=== PATIENT | female | born 1955 | race Caucasian/White ===

== ENCOUNTER → 2017-09-13 13:13 | Outpatient (CLI) | payer OTHER, SELFPAY ==
--- NOTE | 2017-09-13 13:17 | RAD_ITS ---
STUDY: X-RAY - RIGHT ANKLE REASON FOR EXAM: Female, 62 years old. Arthritis TECHNIQUE: 4 view(s) of the ankle. COMPARISON: None. FINDINGS: Normal visualized distal tibia and fibula. Normal medial and lateral malleoli. Normal tibiotalar articulation and ankle mortise. There is a large plantar aspect calcaneal spur. The visualized subtalar, talonavicular, calcaneocuboid and tarsal articulations are normal. The soft tissue structures are unremarkable. RAD/Ankle min 3 Views IMPRESSION: Large plantar aspect calcaneal spur. The remaining osseous structures and articular surfaces of the right ankle appear within normal limits. Electronically Signed: Joseph Hayes MD at 21:52 EST , Service support ,
== END ==
PROVIDERS: Family Provider Family Medicine; PCP Family Medicine
DX: M06.89 Other specified rheumatoid arthritis, multiple sites (principal); M65.871 Other synovitis and tenosynovitis, right ankle and foot; M77.31 Calcaneal spur, right foot
CPT/HCPCS: 73610

== ENCOUNTER → 2017-10-21 11:15 | Outpatient (CLI) | payer OTHER, SELFPAY ==
[2017-10-21 11:45] LABS: Absolute Lymphocyte Count 2.06 X10^3/ul (0.83-4.51); Absolute Neutrophil Count 4.8 X10^3/uL (2.0-7.7); Basophil# 0.02 X10^3/uL; Basophil% 0.3 % (0-1); Eosinophil# 0.08 X10^3/uL; Eosinophils% 1.1 % (0-5); Hematocrit 39.5 % (37-47); Hemoglobin 12.3 g/dl (12.0-15.0); Lymphocyte # 2.06 X10^3/ul (4.0); Lymphocyte % 27.1 % (19-41); Mean Corp Hgb Conc 31.1 g/gl (32-36); Mean Corpuscular Hgb 27.6 pg (27.0-32.0); Mean Corpuscular Volume 88.8 fL (81-99); Mean Platelet Vol. 9.3 fl (6.2-12.0); Monocyte# 0.62 X10^3/uL; Monocyte% 8.1 % (0-10); Neutrophil # 4.81 X10^3/uL (2.7-7.7); Neutrophil % 63.1 % (47-70); Platelet Count 361 K/mm3 (150-450); RBC Distribution Width CV 15.9 % (11.6-14.6); RBC Distribution Width SD 51.3 fl (35.1-43.9); Red Blood Count 4.45 M/mm3 (4.2-5.4); White Blood Count 7.6 K/mm3 (4.4-11.0)
[2017-10-21 11:46] LABS: POSITIVE COUNT NO; POSITIVE DIFFERENTIAL NO; POSITIVE MORPHOLOGY NO
[2017-10-21 12:05] LABS: Erythrocyte Sedimentation Rate 25 mm/hr (0-30)
[2017-10-21 12:18] LABS: Albumin, Serum 3.3 g/dL (3.2-5.0); BUN 15 mg/dL (7-18); BUN/Creat Ratio 17.4 RATIO (10-20); Creatinine, Serum 0.86 mg/dL (0.55-1.02); EST Glomerular Filtration Rate 70 mL/min (>60); Est Glom Filt Rate - Afr Amer 85 mL/min (>60); Glucose 97 mg/dL (74-106); Protein, Total 6.9 g/dL (6.4-8.2); Uric Acid 3.9 mg/dL (2.6-6.0)
[2017-10-21 12:19] LABS: ALB/GLOB Ratio 0.9 RATIO (0.9-2.4); AST(SGOT) 17 U/L (15-37); Alanine Aminotransfer ALT/SGPT 30 U/L (13-56); Alkaline Phosphatase 107 U/L (45-117); Anion Gap 4 (5-15); Calcium,Total 8.4 mg/dL (8.5-10.1); Chloride 106 mmol/L (98-107); Globulin 3.6 g/dL (2.2-4.2); Potassium 3.7 mmol/L (3.5-5.1); Sodium Level 141 mmol/L (136-145); Thyroid Stim Hormone (TSH) 1.25 uIU/mL (0.358-3.74)
== END ==
PROVIDERS: Family Provider Family Medicine; PCP Family Medicine; Visit Provider Family Medicine
DX: M10.9 Gout, unspecified (principal); F41.9 Anxiety disorder, unspecified; M06.9 Rheumatoid arthritis, unspecified
CPT/HCPCS: 36415; 80053; 84443; 84550; 85025; 85652

== ENCOUNTER → 2018-01-05 12:13 | Outpatient (CLI) | payer OTHER, SELFPAY ==
[2018-01-05 12:48] LABS: Absolute Lymphocyte Count 1.64 X10^3/ul (0.83-4.51); Basophil# 0.03 X10^3/uL; Basophil% 0.4 % (0-1); Eosinophil# 0.03 X10^3/uL; Eosinophils% 0.4 % (0-5); Hematocrit 38.9 % (37-47); Hemoglobin 12.3 g/dl (12.0-15.0); Lymphocyte # 1.64 X10^3/ul (4.0); Lymphocyte % 19.5 % (19-41); Mean Corp Hgb Conc 31.6 g/gl (32-36); Mean Corpuscular Volume 88.4 fL (81-99); Mean Platelet Vol. 9.4 fl (6.2-12.0); Monocyte% 8.3 % (0-10); Neutrophil # 6.01 X10^3/uL (2.7-7.7); Neutrophil % 71.3 % (47-70); Platelet Count 291 K/mm3 (150-450); RBC Distribution Width CV 14.5 % (11.6-14.6); RBC Distribution Width SD 46.7 fl (35.1-43.9); White Blood Count 8.4 K/mm3 (4.4-11.0)
[2018-01-05 12:51] LABS: POSITIVE COUNT NO; POSITIVE DIFFERENTIAL NO; POSITIVE MORPHOLOGY NO
[2018-01-05 13:00] LABS: Erythrocyte Sedimentation Rate 31 mm/hr (0-30)
== END ==
PROVIDERS: Family Provider Family Medicine; PCP Family Medicine; Visit Provider Specialist
DX: Z96.612 Presence of left artificial shoulder joint (principal)
CPT/HCPCS: 36415; 85025; 85652; 86140

== ENCOUNTER → 2018-01-12 08:38 | Outpatient (CLI) | payer OTHER, SELFPAY ==
[2018-01-12 10:31] LABS: Appearance /Synovial Fluid Cloudy (CLEAR); Color / Synovial Fluid Pink (Pale Yellow); Source / Synovial Fluid LEFT SHOULDER; Viscosity / Synovial Fluid Viscous (HIGH)
[2018-01-12 11:40] LABS: Lymph 88 %; Monocyte /Synovial Fluid 8 %; Neutrophil 4 % (0-25)
[2018-01-12 14:28] LABS: Pathologist Comment Reviewed
== END ==
PROVIDERS: Family Provider Family Medicine; PCP Family Medicine; Visit Provider Specialist
DX: Z96.612 Presence of left artificial shoulder joint (principal)
CPT/HCPCS: 87015; 87070; 87075; 87116; 87205; 87206; 89051

== ENCOUNTER → 2018-02-13 09:37 | Outpatient (CLI) | payer OTHER, SELFPAY ==
--- NOTE | 2018-02-13 09:44 | NM_ITS ---
CLINICAL: 63-year-old female with reported history of painful left shoulder arthroplasty operated approximately 2 years previous. LIMITED 99m Tc MDP THREE PHASE BONE SCINTIGRAPHY COMPARISON: MRI of the left shoulder report 01/17/2018 FINDINGS: Following the intravenous administration of 26.7 mCi of 99m Tc MDP, three-phase bone acquisitions of the chest, cervical-thoracic spine reveal: 1. The flow and immediate static blood pool acquisitions demonstrate normal arterial and venous phase distribution of the radiopharmaceutical. 2. Delayed images depict increased tracer concentration identified in the glenoid and apparent proximal humeral components of the symptomatic left shoulder prosthesis. 3. An increase in uptake is defined in the mid cervical spine posteriorly on the right, lower cervical spine posteriorly on the left and in the midline, the acromioclavicular compartment of the right shoulder, region of the 10th thoracic vertebra posteriorly on the right. 4. The remaining limited skeletal structures are scintigraphically unremarkable. NM/Bone Scan Three Phase IMPRESSION: 1. The increased radiopharmaceutical concentration identified in the humeral and glenoid components of the symptomatic left shoulder arthroplasty is consistent with a high likelihood of loosening in the setting of operative intervention > 2 years prior to the current presentation. If an infectious etiology is a diagnostic consideration, correlation with labeled leukocyte imaging is recommended. 2. Degenerative arthritis is defined in the cervical and thoracic spine, the right shoulder articulation. Electronically Signed: Raymon Quiroga DO at 23:10 EDT Tel , Service support ,
== END ==
PROVIDERS: Family Provider Family Medicine; PCP Family Medicine; Visit Provider Orthopaedic Surgery
DX: Z96.612 Presence of left artificial shoulder joint (principal)
CPT/HCPCS: 78315

== ENCOUNTER → 2018-08-14 14:36 | Outpatient (CLI) | payer MEDICARE, SELFPAY ==
--- NOTE | 2018-08-14 14:48 | EKG12_ITS ---
Test Reason : PRE OP Blood Pressure : / mmHG Vent. Rate : 081 BPM Atrial Rate : 081 BPM P-R Int : 240 ms QRS Dur : 088 ms QT Int : 400 ms P-R-T Axes : 046 -05 066 degrees QTc Int : 464 ms Sinus rhythm with 1st degree A-V block Minimal voltage criteria for LVH, may be normal variant Septal MT, age undetermined, cannot be excluded Nonspecific ST and T wave abnormality Borderline ECG Confirmed by BRANDYN RAZA, SAKINA ([id number]), telegraph editor MARY SALAS ([id number]) on 08/16/2018 2:57:48 PM Referred By: Anshu Goosdon Confirmed By:SAKINA AHUMADA MD
--- NOTE | 2018-08-14 15:08 | RAD_ITS ---
STUDY: X-RAY CHEST REASON FOR EXAM: Female, 63 years old. Pre-op TECHNIQUE: PA and lateral views of the chest. COMPARISON: None. FINDINGS: The lungs are clear and expanded. There is no demonstrated pleural abnormality. There is borderline cardiomegaly. Normal mediastinum and jose. Normal visualized pulmonary arteries. Normal visualized aortic arch and descending thoracic aorta. There are diffuse degenerative changes of the visualized thoracic spine. There is a left shoulder arthroplasty. There is degenerative change in the right shoulder joint. There is no demonstrated abnormality of the visualized soft tissue structures of the upper abdomen. RAD/Chest PA and Lateral IMPRESSION: Borderline cardiac enlargement no evidence of acute focal infiltrate. Electronically Signed: Deanna Wilburn MD at 19:48 EST Tel , Service support ,
[2018-08-14 15:44] LABS: Hematocrit 38.7 % (37-47); Hemoglobin 12.7 g/dl (12.0-15.0); Mean Corp Hgb Conc 32.8 g/gl (32-36); Mean Corpuscular Hgb 29.1 pg (27.0-32.0); Mean Corpuscular Volume 88.8 fL (81-99); Mean Platelet Vol. 9.9 fl (6.2-12.0); Platelet Count 330 K/mm3 (150-450); RBC Distribution Width CV 13.8 % (11.6-14.6); Red Blood Count 4.36 M/mm3 (4.2-5.4); White Blood Count 6.6 K/mm3 (4.4-11.0)
[2018-08-14 16:03] LABS: Anion Gap 9 (5-15); BUN 13 mg/dL (7-18); BUN/Creat Ratio 14.9 RATIO (10-20); Calcium,Total 8.4 mg/dL (8.5-10.1); Chloride 103 mmol/L (98-107); Creatinine, Serum 0.88 mg/dL (0.55-1.02); EST Glomerular Filtration Rate 69 mL/min (>60); Est Glom Filt Rate - Afr Amer 84 mL/min (>60); Glucose 130 mg/dL (74-106); Potassium 3.7 mmol/L (3.5-5.1); Sodium Level 141 mmol/L (136-145)
[2018-08-14 16:09] LABS: Scan Indicated on CBC? Y/N NO
[2018-08-14 16:17] LABS: Erythrocyte Sedimentation Rate 24 mm/hr (0-30)
== END ==
PROVIDERS: Family Provider Family Medicine; PCP Family Medicine; Referring Provider Physician Assistant Surgical; Visit Provider Physician Assistant Surgical
DX: Z01.818 Encounter for other preprocedural examination (principal); Z01.810 Encounter for preprocedural cardiovascular examination; Z01.811 Encounter for preprocedural respiratory examination; M15.0 Primary generalized (osteo)arthritis
CPT/HCPCS: 36415; 71046; 80048; 85027; 85652; 93005

== ENCOUNTER → 2018-08-23 12:06 | Outpatient (CLI) | payer MEDICARE, SELFPAY ==
[2018-08-22 13:18] VITALS: BMI 44.1
[2018-08-23 13:55] LABS: AST(SGOT) 19 U/L (15-37); Alanine Aminotransfer ALT/SGPT 29 U/L (13-56); Albumin, Serum 3.7 g/dL (3.2-5.0); Alkaline Phosphatase 128 U/L (45-117); Bilirubin, Direct 0.19 mg/dL (0.00-0.30); Cholesterol 158 mg/dL (200); Globulin 3.6 g/dL (2.2-4.2); High Density Lipoprotein 37 mg/dL; Protein, Total 7.3 g/dL (6.4-8.2); Triglycerides 242 mg/dL; Very Low Density Lipoprotein 48 mg/dL (5-40)
== END ==
PROVIDERS: Family Provider Family Medicine; PCP Family Medicine; Referring Provider Internal Medicine Cardiovascular Disease; Visit Provider Internal Medicine Cardiovascular Disease
DX: E78.5 Hyperlipidemia, unspecified (principal); E66.9 Obesity, unspecified
CPT/HCPCS: 36415; 80061; 80076

== ENCOUNTER → 2018-08-24 15:25 | Outpatient (CLI) | payer MEDICARE, SELFPAY ==
[2018-08-22 13:18] VITALS: BMI 44.1
--- NOTE | 2018-08-24 15:27 | ECHOD_ITS ---
Reason For Study: DYSPNEA Procedure This was a 2D Doppler, Color Flow transthoracic echocardiogram. Exam performed in department. Left Ventricle Normal size and thickness. The estimated ejection fraction is 65 %. Stage 1 diastolic dysfunction. No regional wall motion abnormalities noted. Right Ventricle Normal size and thickness. Normal systolic function. Atria The left atrium is mildly enlarged. Normal right atrium. Normal atrial septum. Mitral Valve The mitral valve is structurally normal. No prolapse or stenosis seen. Trivial mitral valve insufficiency. Tricuspid Valve Normal tricuspid valve. Trivial tricuspid valve insufficiency. Right ventricular systolic pressure estimated to be 31 mmHg. Aortic Valve Normal aortic valve. Trisinus/trileaflet aortic valve. Pulmonic Valve Normal pulmonic valve. Great Vessels Normal aortic root. Normal arch. Normal inferior vena cava. Inferior vena cava collapse with sniff. Pericardium/Pleural No pericardial effusion. MMode/2D Measurements & Calculations LVIDd: 5.8 cm IVSd: 0.90 cm Ao root diam: 3.5 cm LVIDs: 3.6 cm LVPWd: 1.2 cm RVDd: 3.2 cm FS: 38.5 % LAV(MOD-bp): 61.9 ml EDV(MOD-sp4): 60.5 ml EDV(MOD-sp2): 60.6 ml LAV(MOD-bp) Indexed: 31.0 ml/m2 ESV(MOD-sp4): 24.8 ml EF(MOD-sp2): 68.2 % LAV(MOD-sp2): 53.6 ml EF(MOD-sp4): 59.0 % LAV(MOD-sp4): 64.6 ml SV(MOD-sp4): 35.6 ml SV(MOD-sp2): 41.3 ml LA A4 area: 21.3 cm2 LA dimension(2D): 4.4 cm RA A4 area: 10.9 cm2 Time Measurements MV dec time: 0.22 sec Doppler Measurements & Calculations MV E max rasheed: 87.6 cm/sec Lat Peak E' Rasheed: 5.0 cm/sec Med Peak E' Rasheed: 5.3 cm/sec MV A max rasheed: 94.9 cm/sec E/E' lat: 17.4 E/E' med: 16.6 MV E/A: 0.92 Ao V2 max: 168.5 cm/sec LV V1 max: 104.9 cm/sec TR max rasheed: 236.2 cm/sec Ao max P.4 mmHg LV V1 max P.4 mmHg TR max P.4 mmHg Interpretation Summary The estimated ejection fraction is 65 %. Stage 1 diastolic dysfunction. Trivial mitral valve insufficiency. Trivial tricuspid valve insufficiency. Right ventricular systolic pressure estimated to be 31 mmHg. There is no comparison study available. Ordering Physician: Manuel Keane Referring Physician: ARMAND OWEN Performed By: Lexy Duke, AVANI, RVT
== END ==
PROVIDERS: Family Provider Family Medicine; PCP Family Medicine; Referring Provider Internal Medicine Cardiovascular Disease; Visit Provider Internal Medicine Cardiovascular Disease
DX: Z01.810 Encounter for preprocedural cardiovascular examination (principal); I36.1 Nonrheumatic tricuspid (valve) insufficiency; I34.0 Nonrheumatic mitral (valve) insufficiency; I44.0 Atrioventricular block, first degree; I10 Essential (primary) hypertension
CPT/HCPCS: 93306

== ENCOUNTER → 2018-08-25 13:22 | Outpatient (CLI) | payer MEDICARE, SELFPAY ==
[2018-08-22 13:18] VITALS: BMI 44.1
--- NOTE | 2018-08-25 13:24 | STEWCON_ITS ---
Reason For Study: PREOP, DYSPNEA ON EXERTION Stress Results Protocol: MODIFIED TRISTAN Maximum Predicted HR: 156 bpm Target HR: 133 bpm % Maximum Predicted HR: 92 % DurationHeart Rate Stage (mm:ss) (bpm) BP Comment BASELINE 90 158/96.2CC DEFINITY STAGE 0 3:00 129 184/100SLIGHT SOB STAGE 1/2 1:41 144 / 0.2 CC DEFINITY,INCREASED SOB AND FATIGUE RECOVERY 108 140/90 Stress Duration: 4:41 mm:ss Maximum Stress HR: 144 bpm Baseline Echocardiogram Findings The estimated ejection fraction is 65 %. Stress Echo Wall motion Data Resting WM Intermediate WM Stress WM Resting Wall Motion Wall Motion Stress No regional wall motion Mid-Anterior : Mildly abnormalities noted. hypokinetic. Mid-anteroseptal : Mildly hypokinetic. Mid-Inferior: Mildly hypokinetic. EKG Data The baseline ECG displays normal sinus rhythm. During stress, there were no ST or T wave changes noted to suggest ischemia. No arrhythmias noted. Interpretation Summary The estimated ejection fraction is 65 %. Mid-Anterior : Mildly hypokinetic Mid-Inferior: Mildly hypokinetic Mid-anteroseptal : Mildly hypokinetic Abnormal, adequate, modified Tristan treadmill echocardiogram. Positive for ischemia by echocardiographic criteria. No anginal symptoms noted. No arrhythmias noted. Very poor exercise capacity for age on a modified Tristan protocol. Patient appeared to developed mid anteroseptal and inferior hypokinesis at peak exercise. Test terminated due to dyspnea. Appropriate blood pressure severe hypertensive response to exercise. Final LVEF of 45%. Patient will be referred for catheterization. The study was technically difficult. Contrast injection was performed. Ordering Physician: Manuel Keane Referring Physician: Manuel Keane Performed By: Janiya Julien, AVANI, RVT
== END ==
PROVIDERS: Family Provider Family Medicine; PCP Family Medicine; Referring Provider Internal Medicine Cardiovascular Disease; Visit Provider Internal Medicine Cardiovascular Disease
DX: Z01.810 Encounter for preprocedural cardiovascular examination (principal); I44.0 Atrioventricular block, first degree
CPT/HCPCS: 93017; 93350; Q9957; A4216; C8928

== ENCOUNTER 2018-08-29 06:24 | Day surgery (SDC) | payer MEDICARE, SELFPAY ==
[2018-08-22 13:18] VITALS: BMI 44.1
[2018-08-25 16:13] VITALS: BMI 44.1
[2018-08-28 13:47] VITALS: BMI 44.1
--- NOTE | 2018-08-29 08:33 | CL.D_ITS ---
Patient Name: CLARISSA RETANA Study Date: 08/29/2018 Performing: Manule Keane MD Ht: 61.02 inches 155 cm : 1955 Wt: 233.69 lbs 106 kg Age: 63 Gender: female BSA: 2.02 PROCEDURE(S) PERFORMED [id number]-JTR/[id number]/LV CLINICAL PROFILE AND INDICATIONS Indications: Suspected CAD Heart Failure: None Stress/Imaging Stress Echocardiogram: Yes Result: Positive Intermediate RiskStress Echocardiogram : Positive Intermediate Risk Angina Classification Anginal Classification w/in 2 Weeks: CCS III CAD Presentations: Other: Dyspnea on exertion Comorbidities/Risk Factors: Hypertension Dyslipidemia CONCLUSIONS Normal coronary arteries Normal LV size, wall motion,and systolic function RECOMMENDATIONS Low risk for non-cardiac surgery. Start lasix 20mg po qd Manual sheath removal. DESCRIPTION OF PROCEDURE The patient arrived to the procedure lab. The risks and benefits of the procedure as well as a full d escription of our services here and current unavailability of surgical backup were fully explained to the patient and/or their significant other prior to the catheterization. The Timeout was completed, verifying the correct patient and procedure. The patient's procedural site was prepped and draped in the usual fashion. Local anesthetic was given subcutaneously to right groin region with Lidocaine 2%. Using a modified Seldinger technique, arterial access was obtained via the right femoral artery, a 4 Fr sheath was inserted Left Coronary Artery selective angiography was performed in multiple views us ing a 4 Fr. JL5 catheter. Right Coronary Artery selective angiography was then performed in multiple views using a 4 Fr. 3DRC catheter. Left Ventriculography was performed in LAST projection using a 4 Fr . Pigtail catheter. LV to AO pullback pressures were then recorded.The arterial sheath was pulled and manual compression applied until hemostasis is achieved. CORONARY ANGIOGRAPHY DOMINANCE: Right Dominant LEFT HEART ASSESSMENT Left Ventricular Ejection Fraction: by LV Gram 65 % Normal LV wall motion Normal Left Ventricular systolic function Normal Left Ventricular systolic function LEFT MAIN: Angiographically normal LEFT ANTERIOR DECENDING ARTERY: Angiographically normal CIRCUMFLEX ARTERY: Angiographically normal RIGHT CORONARY ARTERY: Angiographically normal COMPLICATIONS No Complications PROCEDURE MEDICATIONS Versed 1 mg IV Oxygen: 2 L/min via nasal cannula SUMMARY OF HEMODYNAMIC DATA Time AIR REST ECG 07:10:40 AO 168/84 (115) SA 08:18:08 LV 166/-6, 14 08:23:07 LV 161/-7, 16 08:23:14 LVp 176/-4, 19 08:23:19 AOp 165/81 (115) 08:23:24 Signed By Manuel Keane MD On 08/29/2018 08:32:44 Manuel Keane MD
== END 2018-08-29 13:00 | disposition home or self-care (01) ==
LOC: CLSP 06:25
PROVIDERS: Family Provider Family Medicine; PCP Family Medicine; Referring Provider Internal Medicine Cardiovascular Disease; Visit Provider Internal Medicine Cardiovascular Disease
DX: Z01.810 Encounter for preprocedural cardiovascular examination (principal); I11.9 Hypertensive heart disease without heart failure; I44.0 Atrioventricular block, first degree; I36.1 Nonrheumatic tricuspid (valve) insufficiency; I34.0 Nonrheumatic mitral (valve) insufficiency; I73.9 Peripheral vascular disease, unspecified; J45.909 Unspecified asthma, uncomplicated; G47.33 Obstructive sleep apnea (adult) (pediatric); K21.9 Gastro-esophageal reflux disease without esophagitis; M79.7 Fibromyalgia; M06.9 Rheumatoid arthritis, unspecified; E66.9 Obesity, unspecified; M10.9 Gout, unspecified; E78.5 Hyperlipidemia, unspecified; Z68.41 Body mass index [BMI] 40.0-44.9, adult; Z79.82 Long term (current) use of aspirin; Z79.899 Other long term (current) drug therapy
CPT/HCPCS: 93458; 99152; 99153; J7040; C1769; C1894; Q9967

== ENCOUNTER → 2019-02-13 12:09 | Outpatient (CLI) | payer MEDICARE, SELFPAY ==
[2018-08-28 13:47] VITALS: BMI 44.1
[2019-02-13 13:18] LABS: Hematocrit 36.7 % (37-47); Hemoglobin 11.6 g/dl (12.0-15.0); Mean Corp Hgb Conc 31.6 g/gl (32-36); Mean Corpuscular Hgb 27.2 pg (27.0-32.0); Mean Corpuscular Volume 86.2 fL (81-99); Mean Platelet Vol. 9.7 fl (6.2-12.0); Platelet Count 335 K/mm3 (150-450); RBC Distribution Width CV 14.4 % (11.6-14.6); Red Blood Count 4.26 M/mm3 (4.2-5.4); White Blood Count 10.2 K/mm3 (4.4-11.0)
[2019-02-13 13:19] LABS: Scan Indicated on CBC? Y/N NO
[2019-02-13 13:49] LABS: Vitamin B12 > 2000 pg/mL (211-911)
[2019-02-13 14:37] LABS: AST(SGOT) 53 U/L (15-37); Alanine Aminotransfer ALT/SGPT 76 U/L (13-56); Albumin, Serum 3.3 g/dL (3.2-5.0); Alkaline Phosphatase 105 U/L (45-117); Anion Gap 10 (5-15); BUN 9 mg/dL (7-18); BUN/Creat Ratio 12.5 RATIO (10-20); Calcium,Total 8.7 mg/dL (8.5-10.1); Chloride 106 mmol/L (98-107); Creatinine, Serum 0.72 mg/dL (0.55-1.02); EST Glomerular Filtration Rate 86 mL/min (>60); Est Glom Filt Rate - Afr Amer 104 mL/min (>60); Ferritin 21 ng/mL (8-252); Globulin 3.4 g/dL (2.2-4.2); Glucose 111 mg/dL (74-106); Iron 24 ug/dL (50-170); Magnesium 1.8 mg/dL (1.6-2.6); Potassium 3.4 mmol/L (3.5-5.1); Protein, Total 6.7 g/dL (6.4-8.2); Sodium Level 143 mmol/L (136-145)
[2019-02-18 16:31] LABS: Zinc, WHOLE BLOOD 602 ug/dL (440-860)
== END ==
PROVIDERS: Family Provider Family Medicine; PCP Family Medicine; Referring Provider Registered Nurse Nephrology; Visit Provider Registered Nurse Nephrology
DX: K90.9 Intestinal malabsorption, unspecified (principal); E55.9 Vitamin D deficiency, unspecified; I10 Essential (primary) hypertension; E61.1 Iron deficiency; E61.7 Deficiency of multiple nutrient elements; R73.03 Prediabetes
CPT/HCPCS: 36415; 80053; 82607; 82728; 82746; 83540; 83735; 84630; 85027

== ENCOUNTER → 2019-03-30 14:37 | Outpatient (CLI) | payer MEDICARE, SELFPAY ==
[2019-02-16 09:58] VITALS: BMI 37.8
[2019-03-30 15:24] LABS: Hematocrit 41.4 % (37-47); Mean Corp Hgb Conc 31.4 g/dL (32-36); Mean Corpuscular Hgb 27.5 pg (27.0-32.0); Mean Corpuscular Volume 87.7 fL (81-99); Mean Platelet Vol. 9.9 fl (6.2-12.0); Platelet Count 338 K/mm3 (150-450); RBC Distribution Width SD 47.6 fl (35.1-43.9); Red Blood Count 4.72 M/mm3 (4.2-5.4)
[2019-03-30 15:58] LABS: Vitamin B12 1057 pg/mL (211-911)
[2019-03-30 16:38] LABS: ALB/GLOB Ratio 0.9 RATIO (0.9-2.4); AST(SGOT) 19 U/L (15-37); Alanine Aminotransfer ALT/SGPT 30 U/L (13-56); Albumin, Serum 3.4 g/dL (3.2-5.0); Alkaline Phosphatase 114 U/L (45-117); Anion Gap 4 (5-15); BUN 12 mg/dL (7-18); BUN/Creat Ratio 17.3 RATIO (10-20); Calcium,Total 8.7 mg/dL (8.5-10.1); Chloride 111 mmol/L (98-107); Creatinine, Serum 0.69 mg/dL (0.55-1.02); EST Glomerular Filtration Rate 90 mL/min (>60); Est Glom Filt Rate - Afr Amer 109 mL/min (>60); Ferritin 18 ng/mL (8-252); Globulin 3.6 g/dL (2.2-4.2); Glucose 96 mg/dL (74-106); Iron 48 ug/dL (50-170); Sodium Level 143 mmol/L (136-145)
[2019-04-03 08:36] LABS: Zinc, Plasma or Serum 78 ug/dL (56-134)
== END ==
PROVIDERS: Family Provider Family Medicine; PCP Family Medicine; Referring Provider Registered Nurse Nephrology; Visit Provider Registered Nurse Nephrology
DX: E87.6 Hypokalemia (principal); K90.9 Intestinal malabsorption, unspecified; E61.7 Deficiency of multiple nutrient elements; I10 Essential (primary) hypertension; E61.1 Iron deficiency; K21.9 Gastro-esophageal reflux disease without esophagitis; E66.01 Morbid (severe) obesity due to excess calories
CPT/HCPCS: 36415; 80053; 82607; 82728; 82746; 83540; 83735; 84630; 85027

== ENCOUNTER → 2019-05-31 23:15 | Outpatient (CLI) | payer MEDICARE, SELFPAY ==
[2019-05-16 11:08] VITALS: BMI 33.5
== END ==
PROVIDERS: Family Provider Family Medicine; PCP Family Medicine; Referring Provider Internal Medicine Critical Care Medicine; Visit Provider Internal Medicine Critical Care Medicine
DX: G47.33 Obstructive sleep apnea (adult) (pediatric) (principal)
CPT/HCPCS: 95811

== ENCOUNTER → 2019-06-30 09:53 | Outpatient (CLI) | payer MEDICARE, SELFPAY ==
[2019-05-16 11:08] VITALS: BMI 33.5
[2019-06-30 10:41] LABS: Hematocrit 39.6 % (37-47); Hemoglobin 12.9 g/dL (12.0-15.0); Mean Corp Hgb Conc 32.6 g/dL (32-36); Mean Corpuscular Hgb 28.9 pg (27.0-32.0); Mean Corpuscular Volume 88.8 fL (81-99); Mean Platelet Vol. 9.7 fl (6.2-12.0); Platelet Count 330 K/mm3 (150-450); RBC Distribution Width CV 14.3 % (11.6-14.6); RBC Distribution Width SD 45.8 fl (35.1-43.9); Red Blood Count 4.46 M/mm3 (4.2-5.4); White Blood Count 6.2 K/mm3 (4.4-11.0)
[2019-06-30 11:36] LABS: ALB/GLOB Ratio 1.1 RATIO (0.9-2.4); AST(SGOT) 17 U/L (15-37); Alanine Aminotransfer ALT/SGPT 32 U/L (13-56); Albumin, Serum 3.6 g/dL (3.2-5.0); Alkaline Phosphatase 128 U/L (45-117); Anion Gap 8 (5-15); BUN 9 mg/dL (7-18); BUN/Creat Ratio 11.1 RATIO (10-20); Calcium,Total 8.9 mg/dL (8.5-10.1); Chloride 105 mmol/L (98-107); Cholesterol 119 mg/dL (200); Creatinine, Serum 0.81 mg/dL (0.55-1.02); EST Glomerular Filtration Rate 75 mL/min (>60); Est Glom Filt Rate - Afr Amer 91 mL/min (>60); Ferritin 40 ng/mL (8-252); Globulin 3.4 g/dL (2.2-4.2); Glucose 94 mg/dL (74-106); High Density Lipoprotein 47 mg/dL; Iron 73 ug/dL (50-170); Potassium 3.8 mmol/L (3.5-5.1); Sodium Level 141 mmol/L (136-145); Triglycerides 114 mg/dL; Very Low Density Lipoprotein 23 mg/dL (5-40)
[2019-07-02 11:30] LABS: Vitamin B12 1321 pg/mL (211-911); Vitamin D,25 Hydroxy 46.6 ng/mL (29.95-100.01)
== END ==
PROVIDERS: Family Provider Family Medicine; PCP Family Medicine; Referring Provider Registered Nurse Nephrology; Visit Provider Registered Nurse Nephrology
DX: K90.9 Intestinal malabsorption, unspecified (principal); E61.7 Deficiency of multiple nutrient elements; E61.1 Iron deficiency; E55.9 Vitamin D deficiency, unspecified; E66.01 Morbid (severe) obesity due to excess calories
CPT/HCPCS: 36415; 80053; 80061; 82306; 82607; 82728; 82746; 83540; 83735; 85027

== ENCOUNTER → 2019-12-27 13:33 | Outpatient (CLI) | payer MEDICARE, SELFPAY ==
[2019-08-30 14:58] VITALS: BMI 31.2
[2019-12-27 14:05] LABS: Hematocrit 41.3 % (37-47); Hemoglobin 13.3 g/dL (12.0-15.0); Mean Corp Hgb Conc 32.2 g/dL (32-36); Mean Corpuscular Hgb 29.7 pg (27.0-32.0); Mean Corpuscular Volume 92.2 fL (81-99); Mean Platelet Vol. 9.3 fl (6.2-12.0); Platelet Count 323 K/mm3 (150-450); RBC Distribution Width CV 13.5 % (11.6-14.6); RBC Distribution Width SD 45.6 fl (35.1-43.9); Red Blood Count 4.48 M/mm3 (4.2-5.4); White Blood Count 4.8 K/mm3 (4.4-11.0)
[2019-12-27 14:30] LABS: Vitamin B12 > 2000 pg/mL (211-911); Vitamin D,25 Hydroxy 44.8 ng/mL
[2019-12-27 15:01] LABS: AST(SGOT) 18 U/L (15-37); Alanine Aminotransfer ALT/SGPT 28 U/L (13-56); Albumin, Serum 3.3 g/dL (3.2-5.0); Alkaline Phosphatase 118 U/L (45-117); Anion Gap 5 (5-15); BUN 14 mg/dL (7-18); BUN/Creat Ratio 23.5 RATIO (10-20); Calcium,Total 8.8 mg/dL (8.5-10.1); Chloride 107 mmol/L (98-107); Cholesterol 115 mg/dL (200); EST Glomerular Filtration Rate 107 mL/min (>60); Est Glom Filt Rate - Afr Amer 130 mL/min (>60); Ferritin 30 ng/mL (8-252); Globulin 3.3 g/dL (2.2-4.2); Glucose 97 mg/dL (74-106); High Density Lipoprotein 59 mg/dL; Iron 88 ug/dL (50-170); Potassium 4.3 mmol/L (3.5-5.1); Protein, Total 6.6 g/dL (6.4-8.2); Sodium Level 141 mmol/L (136-145); Triglycerides 80 mg/dL; Very Low Density Lipoprotein 16 mg/dL (5-40)
[2019-12-30 03:06] LABS: Vitamin B1, Thiamine 175.6 nmol/L (66.5-200.0)
[2019-12-30 09:41] LABS: Zinc, Plasma or Serum 90 ug/dL (56-134)
== END ==
PROVIDERS: PCP Family Medicine; Referring Provider Registered Nurse Nephrology; Visit Provider Registered Nurse Nephrology
DX: E61.1 Iron deficiency (principal); K90.9 Intestinal malabsorption, unspecified; E55.9 Vitamin D deficiency, unspecified; E61.7 Deficiency of multiple nutrient elements; K21.9 Gastro-esophageal reflux disease without esophagitis; E66.01 Morbid (severe) obesity due to excess calories
CPT/HCPCS: 36415; 80053; 80061; 82306; 82607; 82728; 82746; 83540; 83735; 84425; 84630; 85027

== ENCOUNTER → 2020-07-18 10:30 | Outpatient (CLI) | payer MEDICARE, SELFPAY ==
[2019-08-30 14:58] VITALS: BMI 31.2
[2020-07-18 11:04] LABS: Hematocrit 41.7 % (37-47); Hemoglobin 13.3 g/dL (12.0-15.0); Mean Corp Hgb Conc 31.9 g/dL (32-36); Mean Corpuscular Hgb 29.6 pg (27.0-32.0); Mean Corpuscular Volume 92.9 fL (81-99); Mean Platelet Vol. 9.5 fl (6.2-12.0); Platelet Count 281 K/mm3 (150-450); RBC Distribution Width CV 12.7 % (11.6-14.6); RBC Distribution Width SD 43.3 fl (35.1-43.9); Red Blood Count 4.49 M/mm3 (4.2-5.4); White Blood Count 5.4 K/mm3 (4.4-11.0)
[2020-07-18 11:54] LABS: Vitamin B12 > 2000 pg/mL (211-911)
[2020-07-18 11:57] LABS: ALB/GLOB Ratio 1.1 RATIO (0.9-2.4); AST(SGOT) 12 U/L (15-37); Alanine Aminotransfer ALT/SGPT 24 U/L (13-56); Albumin, Serum 3.6 g/dL (3.2-5.0); Alkaline Phosphatase 129 U/L (45-117); Anion Gap 2 (5-15); BUN 13 mg/dL (7-18); BUN/Creat Ratio 21.2 RATIO (10-20); Calcium,Total 8.7 mg/dL (8.5-10.1); Chloride 109 mmol/L (98-107); Cholesterol 123 mg/dL (200); Creatinine, Serum 0.61 mg/dL (0.55-1.02); EST Glomerular Filtration Rate 104 mL/min (>60); Est Glom Filt Rate - Afr Amer 126 mL/min (>60); Ferritin 40 ng/mL (8-252); Globulin 3.2 g/dL (2.2-4.2); Glucose 97 mg/dL (74-106); High Density Lipoprotein 58 mg/dL; Iron 101 ug/dL (50-170); Potassium 4.2 mmol/L (3.5-5.1); Protein, Total 6.8 g/dL (6.4-8.2); Sodium Level 142 mmol/L (136-145); Triglycerides 98 mg/dL; Very Low Density Lipoprotein 20 mg/dL (5-40)
[2020-07-24 11:30] LABS: Zinc, Plasma or Serum 106 ug/dL (56-134)
== END ==
PROVIDERS: PCP Family Medicine; Visit Provider Surgery
DX: I10 Essential (primary) hypertension (principal); G47.33 Obstructive sleep apnea (adult) (pediatric); G47.10 Hypersomnia, unspecified; M54.5 Low back pain; E61.7 Deficiency of multiple nutrient elements; K90.9 Intestinal malabsorption, unspecified; E66.09 Other obesity due to excess calories; Z68.32 Body mass index [BMI] 32.0-32.9, adult
CPT/HCPCS: 36415; 80053; 80061; 82306; 82607; 82728; 82746; 83540; 83735; 84630; 85027

== ENCOUNTER → 2020-09-17 12:50 | Outpatient (CLI) | payer MEDICARE, SELFPAY ==
[2019-08-30 14:58] VITALS: BMI 31.2
--- NOTE | 2020-09-17 12:55 | ART_ITS ---
Reason For Study: PAD Procedure A bilateral lower extremity continuous wave Doppler with analog waveform analysis,segmental pressures,and ankle brachial indexes without exercise. Left Segmental Pressures Left brachial= 151mmHg. Left posterior tibial artery = 165mmHg. Left dorsalis pedis artery = 159mmHg. Left digit = 109 mmHg. Right Segmental Pressures Right brachial= 152mmHg. Right posterior tibial artery = 173mmHg. Right dorsalis pedis artery = 161mmHg. Right digit = 86 mmHg. Indices The right ankle brachial index by the posterior tibial artery is 1.14. The right ankle brachial index by the dorsalis pedis is 1.06. The right digital-brachial index is 0.57. The left ankle brachial index by the posterior tibial artery is 1.09. The left ankle brachial index by the dorsalis pedis is 1.05. The left digital-brachial index is 0.72. Interpretation Summary Triphasic Doppler waveforms are noted at ankle level bilaterally. Pulse-volume recording waveform amplitudes are diminished at digital level on the right, but satisfactory at all other levels bilaterally. Resting ankle-brachial indices are normal bilaterally. The right digital-brachial index is mildly diminished. The left digital-brachial index is normal. Arterial flow appears normal at ankle level bilaterally, and at digital level on the left. There is evidence of mild, distal, small-vessel arterial occlusive disease at digital level on the right. Ordering Physician: Tk Polanco Referring Physician: Tk Polanco Performed By: Janiya Julien RDCS/RVT
== END ==
PROVIDERS: PCP Family Medicine; Referring Provider Family Medicine; Visit Provider Family Medicine
DX: I73.9 Peripheral vascular disease, unspecified (principal)
CPT/HCPCS: 93923

== ENCOUNTER → 2020-09-22 15:23 | Outpatient (CLI) | payer MEDICARE, SELFPAY ==
[2019-08-30 14:58] VITALS: BMI 31.2
[2020-09-22 18:01] LABS: SARS-COV-2 TOTAL ABS Nonreactive (Nonreactive)
== END ==
PROVIDERS: PCP Family Medicine; Visit Provider Family Medicine
DX: Z20.822 Contact with and (suspected) exposure to COVID-19 (principal)
CPT/HCPCS: 86769

== ENCOUNTER → 2021-01-01 09:20 | Outpatient (CLI) | payer MEDICARE, SELFPAY ==
[2020-12-09 12:37] VITALS: BMI 32.6
[2021-01-01 09:43] LABS: Hematocrit 41.5 % (37-47); Hemoglobin 13.4 g/dL (12.0-15.0); Mean Corp Hgb Conc 32.3 g/dL (32-36); Mean Corpuscular Hgb 29.5 pg (27.0-32.0); Mean Corpuscular Volume 91.4 fL (81-99); Mean Platelet Vol. 9.6 fl (6.2-12.0); Platelet Count 293 K/mm3 (150-450); RBC Distribution Width CV 13.3 % (11.6-14.6); RBC Distribution Width SD 44.8 fl (35.1-43.9); Red Blood Count 4.54 M/mm3 (4.2-5.4); White Blood Count 9.6 K/mm3 (4.4-11.0)
[2021-01-01 10:17] LABS: Vitamin B12 1898 pg/mL (211-911); Vitamin D,25 Hydroxy 38.7 ng/mL
[2021-01-01 10:45] LABS: AST(SGOT) 17 U/L (15-37); Alanine Aminotransfer ALT/SGPT 25 U/L (13-56); Albumin, Serum 3.5 g/dL (3.2-5.0); Alkaline Phosphatase 146 U/L (45-117); Anion Gap 4 (5-15); BUN 15 mg/dL (7-18); BUN/Creat Ratio 22.8 RATIO (10-20); Calcium,Total 8.6 mg/dL (8.5-10.1); Chloride 109 mmol/L (98-107); Cholesterol 121 mg/dL (200); Creatinine, Serum 0.66 mg/dL (0.55-1.02); EST Glomerular Filtration Rate 95 mL/min (>60); Est Glom Filt Rate - Afr Amer 115 mL/min (>60); Ferritin 20 ng/mL (8-252); Globulin 3.4 g/dL (2.2-4.2); Glucose 94 mg/dL (74-106); High Density Lipoprotein 68 mg/dL; Iron 94 ug/dL (50-170); Magnesium 1.9 mg/dL (1.6-2.6); Protein, Total 6.9 g/dL (6.4-8.2); Sodium Level 141 mmol/L (136-145); Triglycerides 85 mg/dL; Very Low Density Lipoprotein 17 mg/dL (5-40)
[2021-01-06 03:06] LABS: Vitamin B1, Thiamine 198.1 nmol/L (66.5-200.0)
[2021-01-06 07:24] LABS: Zinc, Plasma or Serum 125 ug/dL (44-115)
== END ==
PROVIDERS: PCP Family Medicine
DX: K90.9 Intestinal malabsorption, unspecified (principal); E61.7 Deficiency of multiple nutrient elements; E78.5 Hyperlipidemia, unspecified
CPT/HCPCS: 36415; 80053; 80061; 82306; 82607; 82728; 82746; 83540; 83735; 84425; 84630; 85027

== ENCOUNTER → 2022-02-18 | Outpatient (CLI) | payer MEDICARE, SELFPAY ==
[2022-02-18 09:46] LABS: Hematocrit 39.8 % (37-47); Hemoglobin 13.2 g/dL (12.0-15.0); Mean Corp Hgb Conc 33.2 g/dL (32-36); Mean Corpuscular Hgb 30.5 pg (27.0-32.0); Mean Corpuscular Volume 91.9 fL (81-99); Mean Platelet Vol. 9.3 fl (6.2-12.0); Platelet Count 323 K/mm3 (150-450); RBC Distribution Width CV 13.5 % (11.6-14.6); RBC Distribution Width SD 45.4 fl (35.1-43.9); Red Blood Count 4.33 M/mm3 (4.2-5.4); White Blood Count 5.1 K/mm3 (4.4-11.0)
[2022-02-18 11:10] LABS: Vitamin B12 > 2000 pg/mL (211-911); Vitamin D,25 Hydroxy 45.8 ng/mL
[2022-02-18 11:51] LABS: ALB/GLOB Ratio 1.1 RATIO (0.9-2.4); AST(SGOT) 16 U/L (15-37); Alanine Aminotransfer ALT/SGPT 20 U/L (13-56); Albumin, Serum 3.6 g/dL (3.2-5.0); Alkaline Phosphatase 113 U/L (45-117); Anion Gap 8 (5-15); BUN 13 mg/dL (7-18); BUN/Creat Ratio 17.1 RATIO (10-20); Calcium,Total 8.9 mg/dL (8.5-10.1); Chloride 111 mmol/L (98-107); Cholesterol 137 mg/dL (200); Creatinine, Serum 0.76 mg/dL (0.55-1.02); EST Glomerular Filtration Rate 80 mL/min (>60); Est Glom Filt Rate - Afr Amer 97 mL/min (>60); Ferritin 22 ng/mL (8-252); Globulin 3.4 g/dL (2.2-4.2); Glucose 100 mg/dL (74-106); High Density Lipoprotein 61 mg/dL; Iron 89 ug/dL (50-170); Potassium 3.7 mmol/L (3.5-5.1); Sodium Level 143 mmol/L (136-145); Triglycerides 112 mg/dL; Very Low Density Lipoprotein 22 mg/dL (5-40)
[2022-03-01 07:06] LABS: Vitamin B1, Thiamine 196.9 nmol/L (66.5-200.0)
[2022-03-02 14:20] LABS: Zinc, Plasma or Serum 80 ug/dL (44-115)
== END | disposition home or self-care (01) ==
PROVIDERS: PCP Family Medicine
DX: E61.7 Deficiency of multiple nutrient elements (principal); K90.9 Intestinal malabsorption, unspecified; E78.5 Hyperlipidemia, unspecified
CPT/HCPCS: 36415; 80053; 80061; 82306; 82607; 82728; 82746; 83540; 83735; 84425; 84630; 85027

== ENCOUNTER 2022-05-28 16:40 | Emergency (ER) | payer MEDICARE, SELFPAY ==
[2022-05-28 16:41] VITALS: BP 150/88; PULSE 88; RESP 14; TEMP 36.2; O2SAT 100; BMI 33.7
--- NOTE | 2022-05-28 16:56 | CT_ITS ---
INDICATION: RUQ and coccyx pain, fall/injury EXAMINATION: CT ABDOMEN AND PELVIS with CONTRAST - CT Abdomen And Pelvis W/ Contrast Injection TECHNIQUE: Multiple axial images were obtained of the abdomen following administration of IV contrast. Planar reconstructions obtained. A radiation dose optimization technique was used for this scan. RADIATION DOSAGE (If Supplied By Facility): CTDIvol = ( 14.42 ) mGy, DLP = ( 1031.13 ) mGycm IV Contrast dosage and agent: 100 mL Isovue-370 Oral contrast: None. COMPARISON: None. FINDINGS: LOWER THORAX: Lungs are clear. Cardiac contour is normal. No coronary vascular calcifications. HEPATOBILIARY: Liver: The liver is homogeneous and shows no evidence of focal lesion. Gallbladder: Gallbladder is not visualized, surgically absent. Pancreas: Pancreas is normal size configuration and density. No mass is noted. Spleen: The spleen is homogeneous and normal in size. . BOWEL: Stomach: Postoperative changes at the GE junction. Bowel: Large and small bowel loops have normal configuration, there are anastomotic sutures in the LEFT mid abdomen. No evidence of obstruction or dehiscence. Scattered diverticula present without evidence diverticulitis. Appendix: The appendix is not adequately visualized.: GENITOURINARY: Adrenals: Both adrenal glands are normal in size. Kidneys: Kidneys appear symmetric in size. No calcifications are seen in the collecting system. There is no hydronephrosis or surrounding fluid. Bladder: Normal Pelvic organs: The visualized pelvic organs are normal in size and configuration. No masses or adenopathy noted. RETROPERITONEUM: There is normal appearance of the abdominal aorta and inferior vena cava. LYMPH NODES: No evidence of retroperitoneal or para-aortic masses fluid collections or adenopathy. PERITONEAL CAVITY: No ascites noted ANTERIOR ABDOMINAL WALL: Normal, no hernia identified. BONES AND SOFT TISSUES: The skeleton shows no evidence for fractures or destructive lesions. OTHER: None CT/Abdomen/Pelvis W IV Cont ONLY IMPRESSION: 1. Postoperative changes at the GE junction and in the proximal small bowel. 2. No evidence of masses bowel obstruction abscess free fluid or free air. No evidence diverticulitis or appendicitis. 3. No evidence of obstructive uropathy. 4. Gallbladder is surgically absent. Electronically Signed: Raymon Lopez MD at 19:31 EDT ,
--- NOTE | 2022-05-28 16:58 | CT_ITS ---
INDICATION: fall/trauma EXAMINATION: CT BRAIN - CT Head or Brain W/O Contrast Injection TECHNIQUE: Multiple axial images were obtained of the head without intravenous contrast. A radiation dose optimization technique was used for this scan. IV Contrast dosage and agent: None. RADIATION DOSAGE (If Supplied By Facility): CTDIvol = ( 44.99 ) mGy, DLP = ( 745.49 ) mGycm COMPARISON: No relevant prior examinations for comparison FINDINGS: HEMISPHERES: 1. The cerebral parenchyma, ventricular system, subarachnoid spaces have normal configuration and density. There is a normal gyral pattern. There is normal akhtar/white differentiation. No midline shift.. 2. The hemispheric white matter has normal appearance. 3. No intraparenchymal mass, hemorrhage, or acute territorial infarct. CEREBELLUM - BRAINSTEM: The cerebellum, brainstem, basilar and suprasellar cisterns have normal appearance. No Chiari malformation. PITUITARY: Infundibulum and pituitary have normal configuration. Midline structures appear normal. CSF SPACES: Appropriate for age. No hydrocephalus. Basal cisterns are patent. VESSELS: 1. Scattered carotid calcifications bilaterally. 2. No hyperdense vascular signs noted.. ORBITS AND PARANASAL SINUSES: 1. Normal appearance of the bony orbits. Normal appearance of the globes and retrobulbar soft tissues.. 2. Paranasal sinuses are clear. BONY ELEMENTS: Bony elements of the cranial vault, facial skeleton and skull base have normal appearance. SCALP AND SOFT TISSUES: Normal appearance of the soft tissues of the scalp and the visualized face OTHER: None ASPECTS Score for Acute Strokes: 10 CT/Brain/Head without Contrast IMPRESSION: 1. No intracranial evidence of acute traumatic injury 2. No intracranial mass, hemorrhage or acute territorial infarct. 3. No cranial facial fractures. 4. No radiographically significant sinus disease.. Electronically Signed: Raymon Lopez MD at 19:10 EDT ,
--- NOTE | 2022-05-28 16:59 | EDS_ITS ---
HPI HPI - Fall History of Present Illness Chief Complaint: Fall Informant: patient Occured/Mechanism Occurred: Yesterday Mechanism/Context: Yes same level fall Narrative: pulled down by her dog while holding the leash Usually ambulates: Without assistance Pain/Injury Location: tailbone, abd, head Quality of Pain: Aching Current Severity: Severe Maximum Severity: Severe Worsened by: taking deep breath, nothing else Relieved by: nothing Narrative Narrative: Patient was walking her dog yesterday, the dog started running behind her, pulled on the leash causing her to fall backwards onto asphalt, she landed on her tailbone and then her head, ended up flat on her back. Couple hours after that she started having right upper quadrant abdominal pain that is much worse throughout the day today. No nausea or vomiting. No hematuria. No bright red blood when she had a bowel movement today. She has pain in her tailbone but no other pain in her back. She states she had no loss of consciousness or amnesia, focal neurologic symptoms or change in vision. She does not have a headache and her head feels fine now. She is on aspirin daily but no anticoagulants. [facility] Medical History Abnormal stress test Asthma Ham's palsy Chronic low back pain Environmental allergies Fibromyalgia First degree AV block GERD (gastroesophageal reflux disease) Gout Heart attack History of skin cancer Hypertension Left shoulder pain Left ventricular hypertrophy Nonrheumatic mitral valve regurgitation Nonrheumatic tricuspid valve regurgitation Obesity Obstructive sleep apnea Peripheral vascular disease Pre-operative cardiovascular examination Rheumatoid arthritis Home Medications loratadine 10 mg tablet (Claritin) 10 mg PO DAILY 08/17/18 [History Last Taken 08/29/18] multivitamin 1 tab PO DAILY 08/17/18 [History Last Taken Unknown] acetaminophen 500 mg tablet (Tylenol Extra Strength) 1,000 mg PO .COMPLEX 08/22/18 [History Last Taken 08/29/18] cholecalciferol (vitamin D3) 50 mcg (2,000 unit) capsule 2,000 unit PO DAILY 08/22/18 [History Last Taken Unknown] diphenhydramine 25 mg-acetaminophen 500 mg tablet (Tylenol PM Extra Strength) 2 tab PO QHS 08/22/18 [History Last Taken Unknown] biotin 1 mg capsule 1 mg PO DAILY 08/30/19 [History Last Taken Unknown] calcium carbonate 500 mg calcium (1,250 mg) chewable tablet (Calcium 500) 500 mg PO DAILY 08/30/19 [History Last Taken Unknown] dicyclomine 10 mg capsule 10 mg PO BID 08/30/19 [History Last Taken Unknown] albuterol sulfate 90 mcg/actuation aerosol inhaler (ProAir HFA) 2 inh inhalation BID PRN Wheezing #8.5 grams 12/09/20 [Rx Last Taken Unknown] fluticasone propionate 50 mcg/actuation nasal spray,suspension (Flonase Allergy Relief) 1 spray intranasal DAILY 12/09/20 [History Last Taken Unknown] amlodipine 5 mg tablet tablet PO 12/02/21 [History Last Taken Unknown] aspirin 81 mg tablet,delayed release 81 mg PO DAILY 12/02/21 [History Last Taken Unknown] diclofenac sodium 1 % topical gel 2 g topical BID PRN 12/02/21 [History Last Taken Unknown] duloxetine 30 mg capsule,delayed release 30 mg PO QPM 12/02/21 [History Last Taken Unknown] duloxetine 60 mg capsule,delayed release 60 mg PO .AM 12/02/21 [History Last Taken Unknown] isosorbide mononitrate 30 mg tablet,extended release 24 hr 30 mg PO DAILY 12/02/21 [History Last Taken Unknown] lisinopril 10 mg tablet 10 mg PO DAILY 12/02/21 [History Last Taken Unknown] metoprolol tartrate 25 mg tablet 12.5 mg PO BID 12/02/21 [History Last Taken Unknown] nitroglycerin 0.4 mg sublingual tablet 0.4 mg buccal ONCE PRN 12/02/21 [History Last Taken Unknown] omeprazole 40 mg capsule,delayed release 40 mg PO DAILY 12/02/21 [History Last Taken Unknown] Allergy/AdvReac Type Severity Reaction Status Date / Time Sulfa (Sulfonamide Allergy Severe Rash Verified 05/28/22 16:41 Antibiotics) Penicillins [PCN] Allergy Rash Verified 05/28/22 16:41 Tetanus Vaccines and Toxoid Allergy Swelling Verified 05/28/22 16:41 adhesive tape AdvReac BLISTERS Verified 05/28/22 16:41 METAL Allergy Rash Uncoded 05/28/22 16:41 Family History Mother Anemia Hypertension Arthritis Autoimmune disorder COPD (chronic obstructive pulmonary disease) Father Arthritis CVA (cerebral vascular accident) Brother Anemia CAD (coronary artery disease) Sister Thyroid disorder Surgical History H/O arthroscopy of knee H/O bariatric surgery (01/01/19) History of 3 sections History of D&C History of exploratory laparotomy (~1989) History of left heart catheterization (08/29/18) History of lumpectomy of right breast (1971) History of shoulder surgery (08/30/18) History of thumb surgery (2014) History of total abdominal hysterectomy (2000) History of total left knee replacement (1999) History of total right knee replacement (07/06/17) Status post surgical removal of malignant neoplasm of skin (2013) Social History Smoking Status: Unknown if ever smoked second hand exposure: Yes alcohol intake: never substance use type: does not use ROS ROS ED Constitutional Constitutional ED: Denies chills or fever(s) Eyes Eyes: Denies change in vision or diplopia ENT ENT ED: Denies rhinorrhea or sore throat Cardiovascular Cardiovascular: Denies chest pain or palpitations Respiratory/Chest Respiratory/Chest: Reports dyspnea and other Details: A little dyspneic due to pain in her right upper quadrant that is worse with taking deep breaths; no chest or rib discomfort with deep inspiration. ; Denies cough Gastrointestinal Gastrointestinal: Reports abdominal pain; Denies diarrhea, hematochezia, nausea, rectal bleeding or vomiting Genitourinary Genitourinary ED: Denies dysuria or hematuria Musculoskeletal Musculoskeletal: Reports back pain; Denies neck pain Integumentary Denies abscess or rash Neurologic Neurologic: Denies headache(s), paresthesias or weakness Psychiatric Psychiatric: Denies anxiety or suicidal thoughts EXAM Physical Exam Const Vital Signs: 05/28/22 16:41 05/28/22 16:50 05/28/22 18:41 Temperature 97.2 F L Temperature Source Temporal Pulse Rate 88 78 Respiratory Rate 14 16 Respiratory Effort Normal Respiratory Depth Normal Respiratory Pattern Normal Blood Pressure 150/88 H 144/78 H Blood Pressure Mean 108 100 Pulse Ox 100 98 Oxygen Delivery Method Room Air Room Air Room Air 05/28/22 20:00 Temperature 98.7 F Temperature Source Temporal Pulse Rate 78 Respiratory Rate 14 Respiratory Effort Respiratory Depth Respiratory Pattern Blood Pressure 124/78 H Blood Pressure Mean 93 Pulse Ox 99 Oxygen Delivery Method Room Air Positive well nourished, well developed and obese General Appearance ED: well developed and NAD Nutritional Appearance: obese HEENT Reports TM's normal bilaterally and moist mucous membranes normocephalic and atraumatic Eyes PERRL and EOMs intact bilaterally Neck full ROM and supple Neck Narrative: Nontender throughout the midline, full range of motion without any pain or discomfort Chest Wall inspection of chest normal and palpation of chest normal Chest Narrative: Nontender throughout all ribs Resp normal respiratory effort and clear to auscultation bilaterally Cardio regular rate, regular rhythm and no murmurs Rate: tachycardic GI non-distended GI Narrative: Very tender in the right upper quadrant. No other areas of abdominal tenderness. No rebound tenderness. No outward signs of injury to the skin externally. Only tender below the costal margin, the ribs are nontender. Auscultation: normoactive bowel sounds Palpation: soft Back/Spine no CVA tenderness Back/Spine Narrative: Nontender throughout the midline except for the coccyx, at which there is no crepitance General Back: other FROM Extremity normal to inspection General Extremety ED: Negative for edema, pulses abnormal or tenderness General Extremity: Negative for edema or pulses abnormal Neuro oriented x3, CN's II-XII intact bilaterally and no sensory deficits noted [place] Coma Scale: document GCS findings Spontaneous Obeys Commands Oriented 15 Sensorium / Orientation: awake and alert Motor Exam: strength 5/5 throughout Psych mental status grossly normal and thought process normal Skin no rashes or lesions noted and no wounds MDM MDM MDM Narrative Medical decision making narrative: Patient has a tender exam in her right upper quadrant and her coccyx, also obtained a screening chest x-ray given her fall and diffuse span of injuries including head CT. All of this was negative, except for the chest x-ray which appeared to show on 1 view on my interpretation, a dislocated left shoulder replacement. Went to reevaluate her in case she was using her shoulder normally said that it hurt a little but it always does. I did a Milch maneuver after verbal consent from her, she felt a pop, it seemed to be better clinically, she did not notice much of a difference and continue using it normally. Postredu ction x-rays 2 views of mitral rotation left shoulder show good reduction, radiology and agreement. I do not think she needs a sling since she was barely symptomatic with this in the first place, she was given pain medication, reassured, discharged advised to follow-up with orthopedics if she has any issues with her shoulder. Lab Data Attestation: I reviewed the patient's lab results. Labs: Laboratory Results - last 24 hr 05/28/22 05/28/22 05/28/22 17:25 17:27 17:27 WBC 7.7 RBC 3.89 L Hgb 11.5 L Hct 36.3 L MCV 93.3 MCH 29.6 MCHC 31.7 L RDW Std Deviation 46.5 H RDW Coeff of Tomi 13.7 Plt Count 306 MPV 9.6 Immature Gran % (Auto) 0.300 Neut % (Auto) 74.5 H Lymph % (Auto) 15.5 L [place] % (Auto) 8.6 Eos % (Auto) 0.6 Baso % (Auto) 0.5 Absolute Neuts (auto) 5.7 Absolute Lymphs (auto) 1.19 Nucleated RBC % 0 Sodium 144 Potassium 4.2 Chloride 115 H Carbon Dioxide 22.0 Anion Gap 7 BUN 21 H Creatinine 0.57 Estim Creat Clear Calc 40.63 Est GFR (MDRD) Af Amer 136 Est GFR (MDRD) Non-Af 112 BUN/Creatinine Ratio 36.8 H Glucose 110 H Calcium 8.4 L Total Bilirubin 0.30 AST 11 L ALT 19 Alkaline Phosphatase 114 Total Protein 6.5 Albumin 3.1 L Globulin 3.4 Albumin/Globulin Ratio 0.9 Urine Color Yellow Urine Clarity Clear Urine pH 6.0 Ur Specific [place] 1.020 Urine Protein 15 H Urine Glucose (UA) Normal Urine Ketones Negative Urine Occult Blood 10 H Urine Nitrite Negative Urine Bilirubin Negative Urine Urobilinogen Normal Ur Leukocyte Esterase 100 H Urine RBC 0-5 SEEN Urine WBC 0-5 SEEN Ur Squamous Epith Cells 0-5 SEEN Calcium Oxalate Crystal 3+ Urine Bacteria RARE Urine Mucus 0 SEEN Radiography Diagnostic Testing: Clinical Impression(s) from Imaging Studies Abdomen/Pelvis CT 05/28/22 16:56 IMPRESSION: 1. Postoperative changes at the GE junction and in the proximal small bowel. 2. No evidence of masses bowel obstruction abscess free fluid or free air. No evidence diverticulitis or appendicitis. 3. No evidence of obstructive uropathy. 4. Gallbladder is surgically absent. Electronically Signed: Raymon Lopez MD at 19:31 EDT , Brain CT 05/28/22 16:58 IMPRESSION: 1. No intracranial evidence of acute traumatic injury 2. No intracranial mass, hemorrhage or acute territorial infarct. 3. No cranial facial fractures. 4. No radiographically significant sinus disease.. Electronically Signed: Raymon Lopez MD at 19:10 EDT , Chest X-Ray 05/28/22 19:03 IMPRESSION: 1. No evidence of acute cardiac pulmonary process. 2. LEFT shoulder arthroplasty and abnormal alignment LEFT glenohumeral joint, findings consistent with an anterior dislocation. No fracture noted. Electronically Signed: Raymon Lopez MD at 19:16 EDT , Shoulder X-Ray 05/28/22 20:45 IMPRESSION: 1. Interval closed reduction of the previous LEFT shoulder dislocation. 2. LEFT shoulder arthroplasties noted. 3. There is normal alignment without evidence of fracture status post reduction. Electronically Signed: Raymon Lopez MD at 21:04 EDT , Procedures Other Procedures Procedure(s): Closed reduction left shoulder anterior dislocation: Using gentle Milch maneuver without sedation, there was a palpable pop, patient experienced no discomfort, neurovascular intact distally, post reduction x-rays show good reduction. Discharge Plan Triage Chief Complaint: Fall ED Provider: Geoff Richardson Dx/Rx/DC Orders Clinical Impression: Closed anterior dislocation of left shoulder, Accidental fall, Strain of abdominal wall, Coccyx contusion, Closed head injury without loss of consciousn ess Instructions: ED Dislocation: Shoulder (Reduced) Prescriptions: No Action multivitamin tablet 1 tab PO DAILY loratadine [Claritin] 10 mg tablet 10 mg PO DAILY cholecalciferol (vitamin D3) 2,000 unit capsule 2,000 unit PO DAILY acetaminophen [Tylenol Extra Strength] 500 mg tablet 1,000 mg PO .COMPLEX Label Comments: 1,000 mg PO q am; as needed in afternoon Rx Instructions: 1,000 mg PO q am; as needed in afternoon diphenhydramine-acetaminophen [Tylenol PM Extra Strength] 25-500 mg tablet 2 tab PO QHS calcium carbonate [Calcium 500] 500 mg calcium (1,250 mg) tablet,chewable 500 mg PO DAILY biotin 1 mg capsule 1 mg PO DAILY dicyclomine 10 mg capsule 10 mg PO BID fluticasone propionate [Flonase Allergy Relief] 50 mcg/actuation spray,suspension 1 spray intranasal DAILY Rx Instructions: administer into each nostril ProAir HFA 90 mcg/actuation HFA aerosol inhaler 2 inh INHALATION BID PRN (Reason: Wheezing) Qty: 8.5 6RF duloxetine 30 mg capsule,delayed release(DR/EC) 30 mg PO QPM aspirin 81 mg tablet,delayed release (DR/EC) 81 mg PO DAILY Label Comments: TAKE 1 (ONE) TABLET (81 MG TOTAL) BY MOUTH DAILY START: 09/30/21. nitroglycerin 0.4 mg tablet, sublingual 0.4 mg buccal ONCE PRN amlodipine 5 mg tablet PO lisinopril 10 mg tablet 10 mg PO DAILY omeprazole 40 mg capsule,delayed release(DR/EC) 40 mg PO DAILY Label Comments: TAKE 1 CAPSULE BY MOUTH EVERY DAY isosorbide mononitrate 30 mg tablet extended release 24 hr 30 mg PO DAILY Label Comments: TAKE 1 (ONE) TABLET (30 MG TOTAL) BY MOUTH DAILY . duloxetine 60 mg capsule,delayed release(DR/EC) 60 mg PO .AM Label Comments: MOOD,FIBROMYALGIA metoprolol tartrate 25 mg tablet 12.5 mg PO BID Label Comments: HTN diclofenac sodium 1 % gel 2 g topical BID PRN Primary Care Provider: Tk Polanco Referrals: Tk Polanco MD [Primary Care Provider] - Kike Zamudio MD [Med Staff - Active Staff] - (next week -- call for appt) Disposition Disposition: Home, Self Care
[2022-05-28] MEDS: 0.9% Normal Saline 1,000 ML 1000 ML IV (17:29)
[2022-05-28] MEDS: Ondansetron 4 MG/2 ML Vial IV (17:30)
[2022-05-28] MEDS: fentaNYL 100 MCG/2 ML Ampul 25 MCG IV (17:31)
[2022-05-28 17:42] LABS: Mucous, Urine 0 SEEN /hpf (<or=2+)
[2022-05-28 17:44] LABS: Color, Urine Yellow (Yellow); Glucose, Dipstick Normal (Normal); Ketone-Dipstick Negative (Negative); Leukocyte Esterase-Dipstick 100 /ul (Negative); Nitrite-Dipstick Negative (Negative); Occult Blood-Urine 10 /ul (Negative); Protein-Dipstick 15 mg/dl (Negative); Urine Bilirubin Dipstick Negative (Negative); Urine Clarity Clear (Clear); Urine Urobilinogen Normal (Normal)
[2022-05-28 17:48] LABS: Absolute Lymphocyte Count 1.19 X10^3/uL (0.83-4.51); Absolute Neutrophil Count 5.7 X10^3/uL (2.0-7.7); Basophil# 0.04 X10^3/uL; Basophil% 0.5 % (0-1); Eosinophil# 0.05 X10^3/uL; Eosinophils% 0.6 % (0-5); Hematocrit 36.3 % (37-47); Hemoglobin 11.5 g/dL (12.0-15.0); Lymphocyte # 1.19 X10^3/ul (0.83-4.51); Lymphocyte % 15.5 % (19-41); Mean Corp Hgb Conc 31.7 g/dL (32-36); Mean Corpuscular Hgb 29.6 pg (27.0-32.0); Mean Corpuscular Volume 93.3 fL (81-99); Mean Platelet Vol. 9.6 fl (6.2-12.0); Monocyte# 0.66 X10^3/uL; Monocyte% 8.6 % (0-10); NRBC Flagged by Analyzer 0 % (0-5); Neutrophil # 5.74 X10^3/uL (2.7-7.7); Neutrophil % 74.5 % (47-70); Platelet Count 306 K/mm3 (150-450); RBC Distribution Width CV 13.7 % (11.6-14.6); RBC Distribution Width SD 46.5 fl (35.1-43.9); Red Blood Count 3.89 M/mm3 (4.2-5.4); White Blood Count 7.7 K/mm3 (4.4-11.0)
[2022-05-28 17:55] LABS: Bacteria RARE /hpf (None Seen); Calcium Oxalate Crystals Ur 3+ /hpf (<or=2+); Red Blood Cells-Urine 0-5 SEEN /hpf (0-5); Squamous Epithelial Cells - UA 0-5 SEEN /hpf (5-10); White Blood Cells 0-5 SEEN /hpf (0-5)
[2022-05-28 18:17] LABS: ALB/GLOB Ratio 0.9 RATIO (0.9-2.4); AST(SGOT) 11 U/L (15-37); Alanine Aminotransfer ALT/SGPT 19 U/L (13-56); Albumin, Serum 3.1 g/dL (3.2-5.0); Alkaline Phosphatase 114 U/L (45-117); Anion Gap 7 (5-15); BUN 21 mg/dL (7-18); BUN/Creat Ratio 36.8 RATIO (10-20); Calcium,Total 8.4 mg/dL (8.5-10.1); Chloride 115 mmol/L (98-107); Creatinine, Serum 0.57 mg/dL (0.55-1.02); EST Glomerular Filtration Rate 112 mL/min (>60); Est Glom Filt Rate - Afr Amer 136 mL/min (>60); Estimated Creatinine Clearance 40.63 ml/min; Globulin 3.4 g/dL (2.2-4.2); Glucose 110 mg/dL (74-106); Potassium 4.2 mmol/L (3.5-5.1); Protein, Total 6.5 g/dL (6.4-8.2); Sodium Level 144 mmol/L (136-145)
[2022-05-28 18:41] VITALS: BP 144/78; PULSE 78; RESP 16; O2SAT 98
--- NOTE | 2022-05-28 19:03 | RAD_ITS ---
INDICATION: fall, sob EXAMINATION/TECHNIQUE: X-RAY - XR Chest 2 Views COMPARISON: 08/14/2018 FINDINGS: LIFE-SUPPORT AND LINES: 1. None HEART AND VESSELS: The cardiac silhouette, pulmonary vasculature have normal appearance. No evidence of congestive failure. LUNGS AND PLEURAL SPACES: Lungs are clear. No focal infiltrate, consolidation or effusions. No evidence of pneumothorax. No pulmonary mass is noted. MEDIASTINUM AND HILAR REGIONS: No masses adenopathy noted. No areas of calcification. Visualized upper airway is normal in position. BONY ELEMENTS: LEFT shoulder arthroplasties noted. There is mild subluxation anteriorly of the LEFT humerus sac, anterior dislocation is a consideration. No fracture noted. RAD/Chest PA and Lateral IMPRESSION: 1. No evidence of acute cardiac pulmonary process. 2. LEFT shoulder arthroplasty and abnormal alignment LEFT glenohumeral joint, findings consistent with an anterior dislocation. No fracture noted. Electronically Signed: Raymon Lopez MD at 19:16 EDT ,
[2022-05-28 20:00] VITALS: BP 124/78; PULSE 78; RESP 14; TEMP 37.1; O2SAT 99
--- NOTE | 2022-05-28 20:45 | RAD_ITS ---
INDICATION: postreduction EXAMINATION/TECHNIQUE: X-RAY - LEFT XR Shoulder Min 2 Views 2 VIEWS COMPARISON: Earlier same date FINDINGS: SOFT TISSUES: No soft tissue swelling or gas. No radiopaque foreign body. BONES/JOINTS: Status post LEFT shoulder arthroplasty with interval closed reduction with normal alignment demonstrated. No fracture noted. RAD/Shoulder min 2 Views IMPRESSION: 1. Interval closed reduction of the previous LEFT shoulder dislocation. 2. LEFT shoulder arthroplasties noted. 3. There is normal alignment without evidence of fracture status post reduction. Electronically Signed: Raymon Lopez MD at 21:04 EDT ,
[2022-05-28] MEDS: Acetaminophen 500 MG Tablet 1000 MG PO (22:04)
[2022-05-28 22:15] VITALS: BP 146/78; PULSE 78; RESP 14; TEMP 36.4; O2SAT 99
== END 2022-05-28 22:17 | disposition home or self-care (01) ==
PROVIDERS: Emergency Provider Emergency Medicine; PCP Family Medicine; Visit Provider Emergency Medicine
DX: S43.015A Anterior dislocation of left humerus, initial encounter (principal); M06.9 Rheumatoid arthritis, unspecified; S39.011A Strain of muscle, fascia and tendon of abdomen, initial encounter; S30.0XXA Contusion of lower back and pelvis, initial encounter; S09.90XA Unspecified injury of head, initial encounter; W18.39XA Other fall on same level, initial encounter; Y93.K1 Activity, walking an animal; Y99.8 Other external cause status; I10 Essential (primary) hypertension; M79.7 Fibromyalgia; E66.9 Obesity, unspecified; Z96.612 Presence of left artificial shoulder joint; Z79.82 Long term (current) use of aspirin; Z79.899 Other long term (current) drug therapy
CPT/HCPCS: 23650; 70450; 71046; 73030; 74177; 80053; 81001; 85025; 96361; 96374; 96375; 99284; J7030; Q9967; A4216; J2405

== ENCOUNTER → 2023-03-09 | Outpatient (CLI) | payer MEDICARE, SELFPAY ==
[2023-03-09 11:22] LABS: Hematocrit 37.7 % (37-47); Hemoglobin 11.8 g/dL (12.0-15.0); Mean Corp Hgb Conc 31.3 g/dL (32-36); Mean Corpuscular Hgb 27.6 pg (27.0-32.0); Mean Corpuscular Volume 88.1 fL (81-99); Mean Platelet Vol. 9.7 fl (6.2-12.0); Platelet Count 355 K/mm3 (150-450); RBC Distribution Width CV 14.6 % (11.6-14.6); RBC Distribution Width SD 46.5 fl (35.1-43.9); Red Blood Count 4.28 M/mm3 (4.2-5.4)
[2023-03-09 12:15] LABS: Vitamin B12 1968 pg/mL (211-911); Vitamin D,25 Hydroxy 47.4 ng/mL
[2023-03-09 12:26] LABS: AST(SGOT) 13 U/L (15-37); Alanine Aminotransfer ALT/SGPT 20 U/L (13-56); Albumin, Serum 3.3 g/dL (3.2-5.0); Alkaline Phosphatase 100 U/L (45-117); Anion Gap 3 (5-15); BUN 12 mg/dL (7-18); BUN/Creat Ratio 19.6 RATIO (10-20); Calcium,Total 8.4 mg/dL (8.5-10.1); Chloride 110 mmol/L (98-107); Cholesterol 126 mg/dL (200); Creatinine, Serum 0.61 mg/dL (0.55-1.02); EST Glomerular Filtration Rate 103 mL/min (>60); Est Glom Filt Rate - Afr Amer 125 mL/min (>60); Ferritin 14 ng/mL (8-252); Globulin 3.3 g/dL (2.2-4.2); Glucose 99 mg/dL (74-106); High Density Lipoprotein 56 mg/dL; Magnesium 2.1 mg/dL (1.6-2.6); Potassium 4.4 mmol/L (3.5-5.1); Protein, Total 6.6 g/dL (6.4-8.2); Sodium Level 140 mmol/L (136-145); Triglycerides 100 mg/dL; Very Low Density Lipoprotein 20 mg/dL (5-40)
== END | disposition home or self-care (01) ==
PROVIDERS: PCP Family Medicine
DX: E61.7 Deficiency of multiple nutrient elements (principal); K90.9 Intestinal malabsorption, unspecified; I10 Essential (primary) hypertension
CPT/HCPCS: 36415; 80053; 80061; 82306; 82607; 82728; 82746; 83735; 84425; 84630; 85027

== ENCOUNTER → 2023-04-06 | Outpatient (CLI) | payer MEDICARE, SELFPAY ==
--- NOTE | 2023-04-06 11:54 | US_ITS ---
INDICATION: FAMILY HX OF KIDNEY DISORDER -- hematuria EXAMINATION: US Kidney(s) complete (eg, kidneys and bladder) TECHNIQUE: Sarah scale and color doppler images were obtained of the kidneys. COMPARISON: None. FINDINGS: RIGHT KIDNEY: Measures 10.6 cm in length.. There is no hydronephrosis. No focal lesion or perinephric collection is demonstrated. There is a nonobstructing 1.1 cm stone. LEFT KIDNEY: Measures 10.3 cm in length.. There is no hydronephrosis. No focal lesion or perinephric collection is demonstrated. There is mild left hydronephrosis versus parapelvic cyst. URINARY BLADDER: No acute abnormality. US/Kidney and Bladder IMPRESSION: Mild left hydronephrosis versus parapelvic cysts. Consider CT urogram. Nonobstructing 1.1 cm stone in the right kidney. Electronically Signed: Javier Thompson MD at 21:22 EDT ,
== END | disposition home or self-care (01) ==
LOC: US 11:53
PROVIDERS: PCP Nurse Practitioner Family; Referring Provider Nurse Practitioner Family; Visit Provider Nurse Practitioner Family
DX: R31.9 Hematuria, unspecified (principal); Z84.1 Family history of disorders of kidney and ureter
CPT/HCPCS: 76770

== ENCOUNTER → 2023-05-04 | Outpatient (CLI) | payer MEDICARE, SELFPAY ==
[2023-05-04 11:35] LABS: Uric Acid 4.2 mg/dL (2.6-6.0)
[2023-05-05 15:08] LABS: Anti-Nuclear Antibody Test Positive (.); Cytoplasmic Ab (C-ANCA) <1:20 titer (Neg:<1:20); Perinuclear Ab (P-ANCA) <1:20 titer (Neg:<1:20)
== END | disposition home or self-care (01) ==
PROVIDERS: PCP Nurse Practitioner Family; Visit Provider Internal Medicine Nephrology
DX: R31.9 Hematuria, unspecified (principal); M10.9 Gout, unspecified
CPT/HCPCS: 36415; 84550; 86038; 86256

== ENCOUNTER → 2023-05-19 | Outpatient (CLI) | payer MEDICARE, SELFPAY ==
--- NOTE | 2023-05-19 13:20 | CT_ITS ---
INDICATION: Hematuria, history of right kidney stone and hypertension. EXAMINATION: CT ABDOMEN AND PELVIS WITH AND WITHOUT CONTRAST - CT Abdomen And Pelvis WO/W Contrast Injection TECHNIQUE: Helically acquired images were obtained of the abdomen and pelvis both before and after IV contrast. A radiation dose optimization technique was used for this scan. IV Contrast dosage and agent: 100 cc of Isovue-370 Oral contrast: None. RADIATION DOSAGE (If Supplied By Facility): CTDIvol = ( 20.92 ) mGy, DLP = ( 2717.25 ) mGycm COMPARISON: Prior study dated: 05/28/2022. FINDINGS: LOWER CHEST: Lung bases are clear. No cardiomegaly or pericardial effusion. LIVER: Small low-density lesion/cysts near the interlobar fissure probably unchanged. No other focal mass. GALLBLADDER AND BILIARY TREE: The gallbladder is not visualized and may be surgically absent. No gallbladder distension or wall edema. No intra- or extrahepatic biliary ductal dilation. PANCREAS: No focal cystic or solid mass. SPLEEN: Normal size without focal cystic or solid mass. ADRENAL GLANDS: No nodules. KIDNEYS AND URETERS: 10 mm nonobstructing stone in the upper pole calyx of the right kidney. Dominance of the left pelvicalyceal system unchanged the prior exam. Small cyst in the lower pole of the left kidney for which no further follow-up exam is needed. PERITONEUM: No ascites or free air. No other fluid collection. BOWEL: Small hiatal hernia. Status post gastric bypass. Dilated bowel loop on the left side of the abdomen at the anastomosis site unchanged. Nonspecific fluid-filled and slightly prominent bowel loops on the left side of the abdomen without evidence of bowel obstruction. Remarkably appendix. LYMPH NODES: No enlarged mesenteric or retroperitoneal lymph nodes. VESSELS: Aorta is non-dilated. URINARY BLADDER: Unremarkable. REPRODUCTIVE ORGANS: Absent uterus consistent with previous hysterectomy. ABDOMINAL WALL: No discrete abdominal or pelvic wall hernia. BONES: Degenerative changes in the spine unchanged. Grade 1 anterolisthesis of L4 over L5. CT/CT Abd/Pelvis W/WO Contrast IMPRESSION: 1. Status post gastric bypass and postoperative changes. 2. Small hiatal hernia. 3. No focal acute inflammatory process. 4. 10 mm nonobstructing stone in the left kidney without evidence of hydronephrosis. Electronically Signed: Alexander Lau MD at 14:55 EDT ,
[2023-05-19 13:57] LABS: CREATININE FINGERSTICK < 0.9 mg/dL (0.55-1.02); EGFR FINGERSTICK > 60.0000 mL/min (>60)
== END | disposition home or self-care (01) ==
LOC: CT 13:18
PROVIDERS: PCP Nurse Practitioner Family; Referring Provider Nurse Practitioner Family; Visit Provider Nurse Practitioner Family
DX: R93.422 Abnormal radiologic findings on diagnostic imaging of left kidney (principal)
CPT/HCPCS: 74178; Q9967

== ENCOUNTER → 2023-11-25 | Outpatient (CLI) | payer MEDICARE, SELFPAY ==
[2023-11-25 15:28] LABS: Absolute Neutrophil Count 3.5 X10^3/uL (2.0-7.7); Basophil# 0.04 X10^3/uL; Basophil% 0.7 % (0-1); Eosinophil# 0.03 X10^3/uL; Eosinophils% 0.5 % (0-5); Hematocrit 39.4 % (37-47); Hemoglobin 12.4 g/dL (12.0-15.0); Lymphocyte % 25.1 % (19-41); Mean Corp Hgb Conc 31.5 g/dL (32-36); Mean Corpuscular Hgb 29.2 pg (27.0-32.0); Mean Corpuscular Volume 92.7 fL (81-99); Mean Platelet Vol. 9.3 fl (6.2-12.0); Monocyte# 0.57 X10^3/uL; Monocyte% 10.2 % (0-10); NRBC Flagged by Analyzer 0 % (0-5); Neutrophil # 3.52 X10^3/uL (2.7-7.7); Neutrophil % 63.3 % (47-70); Platelet Count 334 K/mm3 (150-450); RBC Distribution Width SD 47.5 fl (35.1-43.9); Red Blood Count 4.25 M/mm3 (4.2-5.4); White Blood Count 5.6 K/mm3 (4.4-11.0)
[2023-11-25 16:03] LABS: Albumin, Serum 3.6 g/dL (3.2-5.0)
== END | disposition home or self-care (01) ==
PROVIDERS: PCP Nurse Practitioner Family; Referring Provider Specialist; Visit Provider Specialist
DX: R79.89 Other specified abnormal findings of blood chemistry (principal)
CPT/HCPCS: 36415; 82040; 85025

== ENCOUNTER → 2023-12-27 | Outpatient (CLI) | payer MEDICARE, SELFPAY ==
[2023-12-27 16:31] LABS: Hematocrit 37.3 % (37-47); Hemoglobin 11.4 g/dL (12.0-15.0); Mean Corp Hgb Conc 30.6 g/dL (32-36); Mean Corpuscular Hgb 29.2 pg (27.0-32.0); Mean Corpuscular Volume 95.6 fL (81-99); Platelet Count 557 K/mm3 (150-450); RBC Distribution Width CV 14.8 % (11.6-14.6); RBC Distribution Width SD 51.8 fl (35.1-43.9)
== END | disposition home or self-care (01) ==
LOC: LAB 15:27
PROVIDERS: PCP Nurse Practitioner Family; Referring Provider Physician Assistant Surgical; Visit Provider Physician Assistant Surgical
DX: D62 Acute posthemorrhagic anemia (principal)
CPT/HCPCS: 36415; 85027

== ENCOUNTER → 2024-11-12 | Outpatient (CLI) | payer MEDICARE, SELFPAY ==
[2024-11-12 10:19] LABS: Absolute Lymphocyte Count 1.58 X10^3/uL (0.83-4.51); Absolute Neutrophil Count 3.4 X10^3/uL (2.0-7.7); Basophil# 0.04 X10^3/uL; Basophil% 0.7 % (0-1); Eosinophil# 0.04 X10^3/uL; Eosinophils% 0.7 % (0-5); Hematocrit 40.5 % (37-47); Hemoglobin 13.3 g/dL (12.0-15.0); Lymphocyte # 1.58 X10^3/ul (0.83-4.51); Lymphocyte % 28.3 % (19-41); Mean Corp Hgb Conc 32.8 g/dL (32-36); Mean Corpuscular Hgb 30.2 pg (27.0-32.0); Mean Corpuscular Volume 91.8 fL (81-99); Mean Platelet Vol. 9.6 fl (6.2-12.0); Monocyte# 0.48 X10^3/uL; Monocyte% 8.6 % (0-10); NRBC Flagged by Analyzer 0 % (0-5); Neutrophil # 3.43 X10^3/uL (2.7-7.7); Neutrophil % 61.5 % (47-70); Platelet Count 311 K/mm3 (150-450); RBC Distribution Width CV 13.6 % (11.6-14.6); Red Blood Count 4.41 M/mm3 (4.2-5.4); White Blood Count 5.6 K/mm3 (4.4-11.0)
[2024-11-12 11:16] LABS: ALB/GLOB Ratio 1.4 RATIO (0.9-2.4); AST(SGOT) 25 U/L (<=31); Alanine Aminotransfer ALT/SGPT 22 U/L (<=34); Alkaline Phosphatase 115 U/L (35-104); Anion Gap 11 (5-15); BUN 13 mg/dL (4-19); BUN/Creat Ratio 20.1 RATIO (10-20); Chloride 106 mmol/L (98-108); Cholesterol 141 mg/dL (<=200); Creatinine, Serum 0.65 mg/dL (0.70-1.20); EST Glomerular Filtration Rate 95 (>60); Ferritin 27 ng/mL (22-378); Globulin 2.8 g/dL (2.2-4.2); Glucose 94 mg/dL (70-99); High Density Lipoprotein 70 mg/dL; Low Density Lipoprotein Calc. 52 mg/dL; Potassium 4.4 mmol/L (3.3-5.1); Protein, Total 6.8 g/dL (5.9-8.4); Sodium Level 140 mmol/L (133-145); Triglycerides 94 mg/dL; Very Low Density Lipoprotein 19 mg/dL (5-40); Vitamin B12 620 pg/mL (180-914); cholesterol:hdl ratio screen 2.02
[2024-11-12 11:44] LABS: Iron 79 ug/dL (50-170); Magnesium 2.1 mg/dL (1.5-2.2)
== END | disposition home or self-care (01) ==
PROVIDERS: PCP Nurse Practitioner Family; Referring Provider Nurse Practitioner Family; Visit Provider Nurse Practitioner Family
DX: E61.7 Deficiency of multiple nutrient elements (principal); K90.9 Intestinal malabsorption, unspecified; E53.8 Deficiency of other specified B group vitamins; Z13.220 Encounter for screening for lipoid disorders
CPT/HCPCS: 36415; 80053; 80061; 82607; 82728; 82747; 83540; 83735; 84425; 84630; 85014; 85025

== ENCOUNTER → 2024-12-13 | Outpatient (CLI) | payer MEDICARE, SELFPAY | END | disposition home or self-care (01) | LOC: LAB 13:11 | PROVIDERS: PCP Nurse Practitioner Family; Referring Provider Nurse Practitioner Family; Visit Provider Nurse Practitioner Family | DX: L65.9 Nonscarring hair loss, unspecified (principal) | CPT/HCPCS: 36415; 84439; 84443 ==

== ENCOUNTER → 2025-07-19 | Outpatient (CLI) | payer MEDICARE, SELFPAY ==
[2025-07-19 09:57] LABS: Hematocrit 40.1 % (37-47); Hemoglobin 13.0 g/dL (12.0-15.0); Immature Granulocytes Count 0.010 X10^3/uL (0.0-0.0); Mean Corp Hgb Conc 32.4 g/dL (32-36); Mean Corpuscular Volume 92.4 fL (81-99); Mean Platelet Vol. 8.9 fl (6.2-12.0); NRBC Flagged by Analyzer 0 % (0-5); Platelet Count 326 K/mm3 (150-450); RBC Distribution Width CV 13.6 % (11.6-14.6); RBC Distribution Width SD 46.4 fl (35.1-43.9); Red Blood Count 4.34 M/mm3 (4.2-5.4); White Blood Count 5.8 K/mm3 (4.4-11.0)
[2025-07-19 10:38] LABS: AST(SGOT) 23 U/L (<=31); Alanine Aminotransfer ALT/SGPT 21 U/L (<=34); Albumin, Serum 4.1 g/dL (3.4-4.8); Alkaline Phosphatase 108 U/L (35-104); Anion Gap 11 (5-15); BUN 10 mg/dL (4-19); BUN/Creat Ratio 14.0 RATIO (10-20); Calcium,Total 9.1 mg/dL (7.6-11.0); Carbon Dioxide 24.6 mmol/L (21.0-32.0); Chloride 105 mmol/L (98-108); Cholesterol 135 mg/dL (<=200); Ferritin 27 ng/mL (22-378); Globulin 2.8 g/dL (2.2-4.2); Glucose 107 mg/dL (70-99); Low Density Lipoprotein Calc. 53 mg/dL; Potassium 4.0 mmol/L (3.3-5.1); Triglycerides 87 mg/dL; Very Low Density Lipoprotein 17 mg/dL (5-40); Vitamin B12 679 pg/mL (180-914); cholesterol:hdl ratio screen 2.06
[2025-07-19 11:59] LABS: Iron 87 ug/dL (50-170); Magnesium 1.9 mg/dL (1.5-2.2)
[2025-07-24 14:09] LABS: Folate, Hemolysate Test 375.0 ng/mL (Not Estab.); Folate, RBC (Hct) Test 40.1 % (34.0-46.6); Folates, RBC Test 935 ng/mL (>498); Vitamin B1, Thiamine 183.5 nmol/L (66.5-200.0); Zinc, Plasma or Serum 87 ug/dL (44-115)
== END | disposition home or self-care (01) ==
LOC: LAB 09:42
PROVIDERS: PCP Nurse Practitioner Family; Referring Provider Nurse Practitioner Family; Visit Provider Nurse Practitioner Family
DX: E61.7 Deficiency of multiple nutrient elements (principal); K90.9 Intestinal malabsorption, unspecified; Z13.220 Encounter for screening for lipoid disorders
CPT/HCPCS: 36415; 80053; 80061; 82607; 82728; 82747; 83540; 83735; 84425; 84630; 85014; 85025